=== PATIENT | male | born 1990 | race Caucasian/White ===

== ENCOUNTER 2017-05-08 16:56 | Emergency (ER) | payer BC ==
[~2017-05-08] VITALS: Ht 175.3 cm; Wt 170.5 kg
[~2017-05-08 16:56] MED LIST: ACET-1256 PO; AMOX500C3 PO; [UNRECOGNIZED DRUG - CODE] PO
[2017-05-08 17:06] VITALS: TEMP 37; Ht 175.3 cm; Wt 170.5 kg
[2017-05-08] MEDS ORDERED: ACETAMINOPHEN 500 MG TAB PO STA (17:25)
[2017-05-08] MEDS ORDERED: IBUPROFEN 600 MG TAB PO STA (17:25)
--- NOTE | 2017-05-08 17:37 | EMERGENCY ROOM VISIT NOTE ---
History Report prepared by Kalee: Elvis Aguirre Under the Supervision of: Dr. Anthony Black M.D. First contact with patient: 17:23 Chief Complaint: TESTICULAR PAIN Stated Complaint: BLADDER, PROSTATE, R SWELLING IN TESTICLE Nursing Triage Summary: Patient ambulatory to triage with an upright and steady gait, states "I have blood in my urine. My semen is brown. I have very little control over urination. When I feel like I have to go, it's right then. I get a strange feeling when I do urinate; it's very uncomfortable. Today, my right testicle seems swollen and it hurts." Symptoms started on Sunday. Patient denies any fevers or chills; no back pain. History of Present Illness The patient is a 27 year old male who presents to the Emergency Room with complaints of dull right testicular pain that began this morning. He rates his pain mild in severity. He denies any known past medical history including history. About 1.5 weeks ago, the patient noticed that his semen was brown in color. Then, two days ago he noticed that he would have a strange uncomfortable feeling after urination, but denies any pain. Yesterday, he could not see any blood in his urine in the toilet, but saw a couple drops of pink urine fall off of his penis after urinating. He then woke up this morning with pain in his testicle. He notes that over this time he has also felt an urgency to urinate. He denies any fevers, chills, chest pain, shortness of breath, nausea, vomiting , abdominal pain, or trouble with his bowels. He denies any known medication allergies. Source of History: patient Onset: Yesterday Position: other (Right testicle) Symptom Intensity: mild Quality: dull Timing: constant Associated Symptoms: + urinary symptoms (urgency, possible hematuria), No fevers, No chills, No chest pain, No SOB, No nausea, No vomiting, No abdominal pain, No melena, No hematochezia, No diarrhea Note: He states that his semen is brown. Review of Systems See HPI for pertinent positives & negatives. A total of 10 systems reviewed and were otherwise negative. Past Medical & Surgical Medical Problems: (1) Obesity, Nos (2) Prader-Willi Syndrome Family History Patient reports no known family medical history. Social History Smoking Status: Current Every Day Smoker Alcohol Use: occasionally Drug Use: none Marital Status: Housing Status: lives with significant other Occupation Status: employed Current/Historical Medications Scheduled Ciprofloxacin Hcl (Cipro), 500 MG PO BID Allergies Coded Allergies: No Known Allergies (Unverified , 05/08/17) Physical Exam Vital Signs Date Time Temp Pulse Resp B/P (MAP) Pulse Ox O2 Delivery O2 Flow Rate FiO2 05/08/17 19:02 107 18 167/96 96 05/08/17 17:06 37.0 117 20 166/99 98 Room Air Physical Exam GENERAL: Patient is in no acute distress. HEENT: No acute trauma, normocephalic atraumatic, mucous membranes moist, no nasal congestion, no scleral icterus. NECK: No stridor, no adenopathy, no meningismus, trachea is midline. LUNGS: Clear to auscultation bilaterally, no wheeze, no rhonchi, breath sounds equal. HEART: Without murmurs gallops or rubs, regular rate and rhythm. ABDOMEN: Soft, nontender, bowel sounds positive, no hernias, no peritonitis. : No penile discharge noted. No scrotal cellulitis. No obvious hernia. Right testicle and epididymis tender to palpation. EXTREMITIES: No cyanosis or edema, full range of motion of all the joints without pain or difficulty, no signs for acute trauma. NEUROLOGIC: Oriented x 3, no acute motor or sensory deficits, no focal weakness. SKIN: No rash, no jaundice, no diaphoresis. Medical Decision & Procedures ER Provider Diagnostic Interpretation: Radiology results as stated below per my review and radiologist interpretation: (TESTICULAR) SCROTUM-CONT CLINICAL HISTORY: 27 years-old Male presenting with right testicular pain, swelling. TECHNIQUE: Real-time grayscale and color and spectral Doppler ultrasound imaging of the scrotum was performed. COMPARISON: None. FINDINGS: Right testis: Normal echogenicity and echotexture. 6 x 2 mm echogenic focus inferior to the testis and separate from the parenchyma, consistent with a scrotolith. Testis measures 3.2 x 4.3 x 2.5 cm. Normal color Doppler flow and arterial and venous waveforms in the testicular parenchyma. Epididymal tail mildly enlarged and hyperemic on color Doppler. Small hydrocele. No varicocele. Left testis: Normal echogenicity and echotexture. Testis measures 3.4 x 4.2 x 2.7 cm. Normal color Doppler flow and arterial and venous waveforms in the testicular parenchyma. Epididymal head normal. Small hydrocele. Varicocele present. Symmetric perfusion of the testes. IMPRESSION: 1. No evidence of testicular torsion. Findings suggest right epididymitis. 2. Small bilateral hydroceles. 3. Left varicocele. Electronically signed by: Vineet Christy M.D. 05/08/2017 6:34 PM Dictated Date/Time: 05/08/2017 6:31 PM Laboratory Results Test 05/08/17 17:59 Urine Color YELLOW Urine Appearance TURBID (CLEAR) Urine pH 6.5 (4.5-7.5) Urine Specific [place] 1.025 (1.000-1.030) Urine Protein 2+ (NEG) Urine Glucose (UA) NEG (NEG) Urine Ketones NEG (NEG) Urine Occult Blood 3+ (NEG) Urine Nitrite NEG (NEG) Urine Bilirubin NEG (NEG) Urine Urobilinogen NEG (NEG) Urine Leukocyte Esterase LARGE (NEG) Urine WBC (Auto) >30 /hpf (0-5) Urine RBC (Auto) >30 /hpf (0-4) Urine Hyaline Casts (Auto) 1-5 /lpf (0-5) Urine Epithelial Cells (Auto) 5-10 /lpf (0-5) Urine Bacteria (Auto) 2+ (NEG) Laboratory results reviewed by me. Medications Administered Medications (Trade) Dose Ordered Sig/Shanna Route Start Time Stop Time Status Last Admin Dose Admin Ibuprofen (Motrin Tab) 600 mg NOW STAT PO 05/08/17 17:25 05/08/17 17:32 DC 05/08/17 17:55 600 MG Acetaminophen (Tylenol Tab) 1,000 mg NOW STAT PO 05/08/17 17:25 05/08/17 17:32 DC 05/08/17 17:56 1,000 MG Ceftriaxone Sodium (Rocephin Im) 250 mg NOW ONCE IM 05/08/17 18:45 05/08/17 18:46 DC 05/08/17 18:55 250 MG Azithromycin (Zithromax Tab) 1,000 mg NOW ONCE PO 05/08/17 18:45 05/08/17 18:46 DC 05/08/17 18:53 1,000 MG ED Course 1723: The patient was evaluated in room B12. A complete history and physical exam was performed. 1725: Ordered Tylenol Tab 1000 mg PO, Motrin Tab 600 mg PO 1845: Ordered Zithromax Tab 1000 mg PO, Rocephin Im 250 mg IM 1900: Reevaluated the patient. Discussed results and discharge instructions: He verbalized understanding and agreement. The patient is ready for discharge. Medical Decision Differential diagnosis includes but is not limited to epididymitis, orchitis, hernia, UTI, prostatitis, testicular torsion, and hydrocele. The patient presents with some urinary difficulty and right testicle pain. He has not had back pain or fever. No vomiting. Urinalysis is suggestive of infection/inflammation, urine culture is pending. Testicular ultrasound shows a right epididymitis. No evidence for testicular torsion. The patient likely has epididymitis/prostatitis. He is being treated with IM ceftriaxone and oral Zithromax. He will placed on Cipro twice a day for 2 weeks. He will be following with urology. The patient was encouraged to use Motrin and/or Tylenol for pain. If worsening, he will return. The patient did receive a dose of oral Motrin and oral Tylenol prior to discharge. Medication Reconcilliation Current Medication List: was personally reviewed by me Blood Pressure Screening Patient's blood pressure: Elevated blood pressure Blood pressure disposition: Referred to PCP Impression Primary Impression: Epididymitis Additional Impression: Prostatitis Scribe Attestation The scribe's documentation has been prepared under my direction and personally reviewed by me in its entirety. I confirm that the note above accurately reflects all work, treatment, procedures, and medical decision making performed by me. Departure Information Dispostion Home / Self-Care Prescriptions Ciprofloxacin Hcl (CIPRO) 500 Mg Tab 500 MG PO BID, #28 TAB Prov: Anthony Black M.D. 05/08/17 Referrals Eduard Chowdhury M.D., Christopher T. M.D. Forms HOME CARE DOCUMENTATION FORM, IMPORTANT VISIT INFORMATION, WORK / SCHOOL INSTRUCTIONS Patient Instructions [facility] Additional Instructions cipro 2x per day for 2 weeks rest fluids return if worsening see urology in follow up--must call for an appt Problem Qualifiers
--- NOTE | 2017-05-08 18:36 | DIAGNOSTIC IMAGING REPORT ---
(TESTICULAR) SCROTUM-CONT CLINICAL HISTORY: 27 years-old Male presenting with right testicular pain, swelling. TECHNIQUE: Real-time grayscale and color and spectral Doppler ultrasound imaging of the scrotum was performed. COMPARISON: None. FINDINGS: Right testis: Normal echogenicity and echotexture. 6 x 2 mm echogenic focus inferior to the testis and separate from the parenchyma, consistent with a scrotolith. Testis measures 3.2 x 4.3 x 2.5 cm. Normal color Doppler flow and arterial and venous waveforms in the testicular parenchyma. Epididymal tail mildly enlarged and hyperemic on color Doppler. Small hydrocele. No varicocele. Left testis: Normal echogenicity and echotexture. Testis measures 3.4 x 4.2 x 2.7 cm. Normal color Doppler flow and arterial and venous waveforms in the testicular parenchyma. Epididymal head normal. Small hydrocele. Varicocele present. Symmetric perfusion of the testes. IMPRESSION: 1. No evidence of testicular torsion. Findings suggest right epididymitis. 2. Small bilateral hydroceles. 3. Left varicocele. Electronically signed by: Vineet Christy M.D. 05/08/2017 6:34 PM Dictated Date/Time: 05/08/2017 6:31 PM
[2017-05-08] MEDS ORDERED: AZITHROMYCIN 250 MG TAB PO ONE (18:45)
[2017-05-08] MEDS ORDERED: CEFTRIAXONE SOD 350MG/ML 1 GM VIAL IM ONE (18:45)
[2017-05-08] MEDS ORDERED: CIPR-255 PO (18:47)
[2017-05-08 19:02] VITALS: BP 167/96; PULSE 107; O2SAT 96
--- NOTE | 2017-05-10 14:19 | Pharmacy Progress Note ---
ED Pharmacist Culture FollowUp Date of Service: May 10, 2017. Patient was sent home with a prescription for cipro 500mg BID X 14 days, which should cover the E. Coli growing from the patient's urine culture.
== END 2017-05-08 19:03 | disposition home or self-care (01) ==
LOC: C.EDB 16:58
DX: N45.1 Epididymitis (principal); N41.9 Inflammatory disease of prostate, unspecified; Q87.1 Congenital malformation syndromes predominantly associated with short stature; F17.210 Nicotine dependence, cigarettes, uncomplicated